=== PATIENT | male | born 1960 | race Caucasian/White ===

== ENCOUNTER 2021-11-23 21:52 | Emergency (ER) | payer BC, OTHER ==
[2021-11-23 22:00] VITALS: BP 143/87; PULSE 83; RESP 16; TEMP 97.9
[2021-11-23] MEDS ORDERED: HYDROmorphone 0.5 MG/0.5 ML SYRINGE IVP STA (22:20)
[2021-11-23] MEDS ORDERED: SODIUM CHLORIDE 0.9% 500 ML 500 ML IV STA (22:21)
[2021-11-23] MEDS ORDERED: KETOROLAC 15 MG/ML 1 ML VIAL IVP STA (22:21)
--- NOTE | 2021-11-23 22:21 | ED ---
Fall HPI - General Chief Complaint: Fall Stated Complaint: Fall, left side pain Time Seen by Provider: 11/23/21 22:01 Source: patient, EMS, RN notes reviewed, old records reviewed Mode of arrival: EMS Limitations: no limitations - History of Present Illness Initial Comments: This is a 61-year-old male to the ER for evaluation. Patient presents today for evaluation of back pain back pain occurring after fall. Patient was trying to break when it is house loss his balance fell backward landing on his back. Patient has history of back surgery considered because of back pain. His back pain hurts a little bit worse than normal he does more numbness and more pain. MD Complaint: fall -: minutes(s) Fall From: standing When Fall Occurred: 1 hour [employer] Fall Witnessed: yes, by family Place Fall Occurred: home Loss of Consciousness: none Prolonged Down Time?: no Symptoms Prior to Fall: none Location: back Location - Extremities: Left: Thigh, Right: Thigh Severity: severe Severity scale (1-10): 8 Quality: sharp, stabbing, aching Context: tripped/slipped Associated Symptoms: denies - Related Data Allergies Allergy/AdvReac Type Severity Reaction Status Date / Time No Known Allergies Allergy Verified 11/23/21 22:24 Review of Systems ROS Statement: Those systems with pertinent positive or pertinent negative responses have been documented in the HPI. ROS Other: All systems not noted in ROS Statement are negative. General Exam - General Exam Comments Initial Comments: Patient has no neurological deficit Limitations: no limitations General appearance: alert, in no apparent distress Head exam: Present: atraumatic, normocephalic, normal inspection Eye exam: Present: normal appearance, PERRL, EOMI. Absent: scleral icterus, conjunctival injection, periorbital swelling ENT exam: Present: normal exam, mucous membranes moist Neck exam: Present: normal inspection. Absent: tenderness, meningismus, lymphadenopathy Respiratory exam: Present: normal lung sounds bilaterally. Absent: respiratory distress, wheezes, rales, rhonchi, stridor Cardiovascular Exam: Present: regular rate, normal rhythm, normal heart sounds. Absent: systolic murmur, diastolic murmur, rubs, gallop, clicks GI/Abdominal exam: Present: soft, normal bowel sounds. Absent: distended, tenderness, guarding, rebound, rigid Extremities exam: Present: normal inspection, full ROM, normal capillary refill. Absent: tenderness, pedal edema, joint swelling, calf tenderness Back exam: Present: normal inspection Neurological exam: Present: alert, oriented X3, CN II-XII intact Psychiatric exam: Present: normal affect, normal mood Skin exam: Present: warm, dry, intact, normal color. Absent: rash Course Vital Signs 11/23/21 21:53 Temperature 97.9 F Pulse Rate 83 Respiratory 16 Rate Blood Pressure 143/87 O2 Sat by Pulse 96 Oximetry - Reevaluation(s) Reevaluation #1: 11/24/21 00:15 Medical record is reviewed Reevaluation #2: 11/24/21 00:15 Patient's pain is improved here in the ER Reevaluation #3: 11/24/21 00:15 Patient informed of results and questions answered Medical Decision Making - Radiology Data Radiology results: report reviewed (CT LS spine negative for acute disease), image reviewed Disposition Clinical Impression: Fall, Back pain, Lumbar contusion, Intervertebral disc protrusion Disposition: HOME SELF-CARE Condition: Fair Instructions (If sedation given, give patient instructions): Low Back Strain (ED), Acute Low Back Pain (ED), Chronic Back Pain (DC) Is patient prescribed a controlled substance at d/c from ED?: No Referrals: Keaton Cano MD [Primary Care Provider] - 1-2 days Time of Disposition: 00:35
--- NOTE | 2021-11-23 23:12 | CT ---
EXAMINATION TYPE: CT lumbar spine wo con DATE OF EXAM: 11/23/2021 COMPARISON: None HISTORY: Lower back pain CT DLP: 978 mGycm Automated exposure control for dose reduction was used. Images obtained from the level of T12-S3 vertebra with no contrast. Number Normal alignment. There is anterior spurring in the thoracic and lumbar spine. No significant disc sp ludmila narrowing. No compression fracture. Posterior elements are intact. There is no lumbar paraspinal mass. Sacroiliac joints are intact. There are pins fixing the left sacroiliac joint. There is extruded disc material at the L1-2 disc. IMPRESSION: Multilevel mild spondylotic changes. No fracture seen. There is L1-2 posterior calcified disc herniation with extruded disc material along the posterior asp ect of the L1 vertebral body.
[2021-11-24] MEDS ORDERED: traMADol 50 MG STARTER PACK 3 TAB BTL PO STA (00:10)
[2021-11-24] MEDS ORDERED: DEXAMETHASONE SOD PHOSPHATE 10 MG/ML 1 ML VIAL IVP STA (00:10)
[2021-11-24] MEDS ORDERED: HYDROmorphone 1 MG/ML 1 ML SYRINGE IVP STA (00:10)
[2021-11-24] MEDS ORDERED: IBUPROFEN 600 MG STARTER PACK 4 TAB BTL PO STA (00:10)
== END 2021-11-24 00:41 | disposition home or self-care (01) ==
LOC: EC 21:52
DX: S30.0XXA Contusion of lower back and pelvis, initial encounter (principal); M51.26 Other intervertebral disc displacement, lumbar region; W01.0XXA Fall on same level from slipping, tripping and stumbling without subsequent striking against object, initial encounter; Y92.009 Unspecified place in unspecified non-institutional (private) residence as the place of occurrence of the external cause
CPT/HCPCS: 72131; 99284; 96374; 96375 ×2; 96376; 96361; J1100; J1170 ×2; J1885